=== PATIENT | female | born 1970 | race African-American/Black ===

== ENCOUNTER 2019-02-28 11:07 | Emergency (ER) | payer SELFPAY ==
[~2019-02-28] VITALS: Ht 157.5 cm; Wt 95.0 kg
[~2019-02-28 11:07] MED LIST: AMOXICILLIN/CL875 MG PO; AMOXICILLIN500 MG PO; AMOXICILLIN875 MG PO; AUGMENTIN500TAB PO; CIPROFLOXACN500 MG PO; CLARITIN10 M1 PO; DIOVAN HCT160 MG/25 PO; DOXYCYCL HYC100 MG PO; FERR SULFATE325 MG PO; FIORICET PO; FLEXERIL OR; HYZAAR1 TA2 PO; INDERAL 40MG TA40 MG PO; LISINOP/HCTZ1 TAB PO; NAPROSYN500 MG OR; PREDNISONE10 MG PO; PROPRANOLOL HCL40 MG PO; TRAZODONE50 MG PO; ULTRAM50 M1 PO; VALTREX1 GM PO; ZESTRIL/PRINIVI20 MG OR
[2019-02-28] MEDS ORDERED: LISINOPRIL20 MG PO ×2 (11:35→13:39)
[2019-02-28 11:58] LABS: HEMOGLOBIN 10.1 g/dl (12.0-16.0); MEAN CELL VOLUME 68.2 fL CALC (80.0-100.0); MEAN CORPUSCULAR HGB 19.7 pG CALC (26.0-32.0); MEAN CORPUSCULAR HGB CONC 28.9 g/L CALC (32.0-36.0); NEUT# 3.11 thou/uL (2.00-7.15); RED BLOOD COUNT 5.13 mill/uL (4.20-5.60); RED CELL DISTRI WIDTH 17.8 % (11.5-15.5)
[2019-02-28 12:16] LABS: ANION GAP 15 (6-22 (CALC)); BUN 8 mg/dL (7-17); BUN/CREATININE RATIO 12 (12-20 (CALC)); CARBON DIOXIDE 26 mmol/l (22-30); CHLORIDE 102 mmol/l (95-108); CREATININE 0.6 mg/dL (0.5-1.0); GFR > 60 ML/MIN (>=60 (CALC)); GFR FOR AFR.AMER. > 60 ML/MIN (>=60 (CALC)); POTASSIUM 3.9 mmol/l (3.5-5.1); SODIUM 139 mmol/l (137-146)
[2019-02-28 13:47] VITALS: BP 166/87
== END 2019-02-28 13:53 | disposition home or self-care (01) | DRG 305 ==
LOC: ED 11:07
PROVIDERS: Family Medicine
DX: I10 Essential (primary) hypertension (principal); R42 Dizziness and giddiness; R51 Headache; R11.0 Nausea; R94.31 Abnormal electrocardiogram [ECG] [EKG]

== ENCOUNTER 2019-05-18 14:58 | Emergency (ER) | payer SELFPAY ==
[~2019-05-18] VITALS: Ht 157.5 cm; Wt 98.3 kg
[~2019-05-18 14:58] MED LIST changes: +LISINOPRIL20 MG PO
[2019-05-18 16:28] VITALS: BP 137/87
== END 2019-05-18 16:32 | disposition home or self-care (01) | DRG 605 ==
LOC: ED 14:58
DX: S40.022A Contusion of left upper arm, initial encounter (principal); I10 Essential (primary) hypertension; Y04.0XXA Assault by unarmed brawl or fight, initial encounter

== ENCOUNTER 2020-06-24 22:32 | Emergency (ER) | payer SELFPAY ==
[~2020-06-24] VITALS: Ht 157.5 cm; Wt 100.0 kg
[2020-06-24] MEDS ORDERED: PREDNISONE1 MG PO (23:21)
[2020-06-24] MEDS ORDERED: HYDRALAZINE10 M2 PO (23:22)
[2020-06-25] LABS: HEMATOCRIT 33.7 % (37.0-47.0); HEMOGLOBIN 9.6 g/dl (12.0-16.0); IMMATURE GRANULOCYTES 0.6 % (0.0-5.0); MEAN CORPUSCULAR HGB 17.8 pG CALC (26.0-32.0); MEAN CORPUSCULAR HGB CONC 28.5 g/dL CAL (32.0-36.0); NEUT# 5.31 thou/uL (2.00-7.15); RED BLOOD COUNT 5.4 mill/uL (4.20-5.60); RED CELL DISTRI WIDTH 20.3 % (11.5-15.5)
[2020-06-25 00:01] LABS: MEAN CELL VOLUME 62.4 fL CALC (80.0-100.0)
[2020-06-25 00:37] LABS: ALBUMIN 4.8 g/dL (3.2-5.0); ALKALINE PHOSPHATASE 82 u/l (38-126); ANION GAP 13 (6-22 (CALC)); BILIRUBIN, TOTAL 0.6 mg/dL (0.0-1.4); BUN 14 mg/dL (7-17); BUN/CREATININE RATIO 19 (12-20 (CALC)); CARBON DIOXIDE 25 mmol/l (22-30); CHLORIDE 103 mmol/l (95-108); CREATININE 0.7 mg/dL (0.5-1.0); GFR > 60 ML/MIN (>=60 (CALC)); GFR FOR AFR.AMER. > 60 ML/MIN (>=60 (CALC)); POTASSIUM 3.6 mmol/l (3.5-5.1); SGOT/AST 32 u/l (14-36); SODIUM 137 mmol/l (137-146); TOTAL PROTEIN 8.6 g/dL (6.3-8.2)
[2020-06-25 02:54] VITALS: BP 148/81
== END 2020-06-25 03:20 | disposition left against medical advice (07) | DRG 885 ==
LOC: ED 22:32
PROVIDERS: Emergency Medicine
DX: F22 Delusional disorders (principal); D64.9 Anemia, unspecified; I10 Essential (primary) hypertension

== ENCOUNTER 2020-09-02 11:17 | Emergency (ER) | payer SELFPAY ==
[~2020-09-02] VITALS: Ht 157.5 cm; Wt 89.9 kg
[~2020-09-02 11:17] MED LIST changes: +HYDRALAZINE10 M2 PO; +PREDNISONE1 MG PO
[2020-09-02 12:48] LABS: URINE BILIRUBIN - DIPSTICK NEGATIVE (NEGATIVE); URINE BLOOD DIPSTICK SMALL (NEGATIVE); URINE COLOR YELLOW; URINE GLUCOSE - DIPSTICK >=1000 mg/dL (NEGATIVE); URINE KETONE 15 mg/dL (NEGATIVE); URINE LEUK ESTERASE NEGATIVE (NEGATIVE); URINE NITRITE - DIPSTICK NEGATIVE (Negative); URINE PROTEIN - DIPSTICK 30 mg/dL (NEG-TRACE); URINE UROBILINOGEN - DIPSTICK 0.2 E.U./dL (0.2)
[2020-09-02 12:53] LABS: URINE EPITHELIAL CELLS FEW EPI/hpf (0-FEW)
[2020-09-02 13:09] LABS: HEMATOCRIT 30.5 % (37.0-47.0); HEMOGLOBIN 8.5 g/dl (12.0-16.0); IMMATURE GRANULOCYTES 0.2 % (0.0-5.0); MEAN CELL VOLUME 65.5 fL CALC (80.0-100.0); MEAN CORPUSCULAR HGB 18.2 pG CALC (26.0-32.0); MEAN CORPUSCULAR HGB CONC 27.9 g/dL CAL (32.0-36.0); NEUT# 3.45 thou/uL (2.00-7.15); RED BLOOD COUNT 4.66 mill/uL (4.20-5.60); RED CELL DISTRI WIDTH 21.1 % (11.5-15.5)
[2020-09-02 13:30] LABS: ALKALINE PHOSPHATASE 60 u/l (38-126); ANION GAP 10 (6-22 (CALC)); BILIRUBIN, TOTAL 0.4 mg/dL (0.0-1.4); BUN 7 mg/dL (7-17); BUN/CREATININE RATIO 11 (12-20 (CALC)); CARBON DIOXIDE 29 mmol/l (22-30); CHLORIDE 100 mmol/l (95-108); CREATININE 0.6 mg/dL (0.5-1.0); ETHYL ALCOHOL 0 mg/dl (0-30); GFR > 60 ML/MIN (>=60 (CALC)); GFR FOR AFR.AMER. > 60 ML/MIN (>=60 (CALC)); POTASSIUM 3.9 mmol/l (3.5-5.1); SGOT/AST 40 u/l (14-36); SODIUM 134 mmol/l (137-146); TOTAL PROTEIN 7.7 g/dL (6.3-8.2)
[2020-09-02 17:13] VITALS: BP 178/88
== END 2020-09-02 17:13 | disposition designated cancer center or children's hospital (05) | DRG 125 ==
LOC: ED 11:17
PROVIDERS: Student in an Organized Health Care Education/Training Program
DX: R44.1 Visual hallucinations (principal); R23.8 Other skin changes; I10 Essential (primary) hypertension

== ENCOUNTER 2023-02-12 19:50 | Emergency (ER) | payer SELFPAY ==
[2023-02-12] VITALS (9 sets, daily range): BP systolic 133–184; BP diastolic 76–101
[~2023-02-12] VITALS: Ht 157.5 cm; Wt 97.0 kg
[2023-02-12 21:24] LABS: BASO% 0.3 % (0-3); EOS% 0.7 % (0-8); HEMATOCRIT 33.2 % (37.0-47.0); IMMATURE GRANULOCYTES 0.1 % (0.0-5.0); LYMPH% 12.2 % (15-41); MEAN CORPUSCULAR HGB 16.5 pG CALC (26.0-32.0); MEAN CORPUSCULAR HGB CONC 27.1 g/dL CAL (32.0-36.0); MONO% 6.5 % (2-13); NEUT# 5.83 thou/uL (2.00-7.15); NEUT% 80.2 % (42-76); RED BLOOD COUNT 5.45 mill/uL (4.20-5.60); RED CELL DISTRI WIDTH 21.3 % (11.5-15.5)
[2023-02-12 21:25] LABS: URINE BLOOD DIPSTICK LARGE (NEGATIVE); URINE COLOR YELLOW; URINE GLUCOSE - DIPSTICK NEGATIVE (NEGATIVE); URINE KETONE 15 mg/dL (NEGATIVE); URINE LEUK ESTERASE NEGATIVE (NEGATIVE); URINE PROTEIN - DIPSTICK TRACE mg/dL (NEG-TRACE); URINE SPECIFIC GRAVITY >=1.030; URINE UROBILINOGEN - DIPSTICK 0.2 E.U./dL (0.2)
[2023-02-12 21:29] LABS: MEAN CELL VOLUME 60.9 fL CALC (80.0-100.0)
[2023-02-12 21:33] LABS: URINE BILIRUBIN - DIPSTICK SMALL (NEGATIVE)
[2023-02-12 21:34] LABS: ALBUMIN 4.7 g/dL (3.2-5.0); ANION GAP 13 (6-22 (CALC)); BILIRUBIN, TOTAL 0.5 mg/dL (0.02-1.3); BUN 9 mg/dL (7-17); BUN/CREATININE RATIO 12 (12-20 (CALC)); CARBON DIOXIDE 24 mmol/l (22-30); CHLORIDE 103 mmol/l (95-108); CREATININE 0.7 mg/dL (0.5-1.0); GFR FOR AFR.AMER. > 60 ML/MIN (>=60 (CALC)); GFR OTHER RACES > 60 ML/MIN (>=60 (CALC)); MAGNESIUM 2.1 mg/dL (1.6-2.3); POTASSIUM 3.6 mmol/l (3.5-5.1); SGOT/AST 28 u/l (14-36); SODIUM 136 mmol/l (137-146); TOTAL PROTEIN 8.7 g/dL (6.3-8.2); URINE NITRITE - DIPSTICK NEGATIVE (Negative)
[2023-02-12 21:35] LABS: URINE SQUAMOUS EPITHELIAL CELL FEW EPI/hpf (0-FEW)
[2023-02-12 21:36] LABS: ALKALINE PHOSPHATASE 113 u/l (38-126)
[2023-02-12 22:05] LABS: TSH, 3RD GENERATION 0.42 uIU/mL (0.47 - 4.68)
[2023-02-12] MEDS ORDERED: MAXZIDE-25MG1 COMBO PO (22:27)
== END 2023-02-12 23:26 | disposition home or self-care (01) | DRG 948 ==
LOC: ED 19:50
PROVIDERS: Family Medicine
DX: R60.0 Localized edema (principal); I10 Essential (primary) hypertension; D64.9 Anemia, unspecified

== ENCOUNTER 2024-05-13 13:15 | Emergency (ER) | payer SELFPAY ==
[~2024-05-13] VITALS: Ht 157.5 cm; Wt 84.0 kg
[2024-05-13] VITALS (8 sets, daily range): BP systolic 137–171; BP diastolic 76–105
[~2024-05-13 13:15] MED LIST changes: +MAXZIDE-25MG1 COMBO PO
[2024-05-13] MEDS ORDERED: ZYRTEC10 MG PO (15:07)
[2024-05-13] MEDS ORDERED: ZPAK PO (15:07)
[2024-05-13] MEDS ORDERED: BENZONATATE200 MG PO (15:07)
== END 2024-05-13 15:20 | disposition home or self-care (01) | DRG 153 ==
LOC: ED 13:15
DX: J06.9 Acute upper respiratory infection, unspecified (principal); I10 Essential (primary) hypertension; Z20.822 Contact with and (suspected) exposure to COVID-19

== ENCOUNTER 2024-11-03 09:02 | Emergency (ER) | payer OTHER ==
[~2024-11-03] VITALS: Ht 157.5 cm; Wt 81.6 kg
[~2024-11-03 09:02] MED LIST changes: +BENZONATATE200 MG PO; +ZPAK PO; +ZYRTEC10 MG PO
[2024-11-03 11:01] LABS: URINE BILIRUBIN - DIPSTICK Negative (NEGATIVE); URINE BLOOD DIPSTICK Negative (NEGATIVE); URINE GLUCOSE - DIPSTICK Negative (NEGATIVE); URINE KETONE Negative (NEGATIVE); URINE LEUK ESTERASE Negative (NEGATIVE); URINE NITRITE - DIPSTICK Negative (Negative); URINE PROTEIN - DIPSTICK Negative (NEG-TRACE); URINE SPECIFIC GRAVITY 1.025; URINE UROBILINOGEN - DIPSTICK 0.2 E.U./dL (0.2)
[2024-11-03 11:08] LABS: URINE COLOR Yellow
[2024-11-03 11:13] VITALS: BP 135/74
[2024-11-03 12:14] LABS: BASO% 0.9 % (0-3); EOS% 2.9 % (0-8); HEMATOCRIT 28.1 % (37.0-47.0); HEMOGLOBIN 7.3 g/dl (12.0-16.0); IMMATURE GRANULOCYTES 0.2 % (0.0-5.0); LYMPH% 27.9 % (15-41); MEAN CELL VOLUME 62.7 fL CALC (80.0-100.0); MEAN CORPUSCULAR HGB 16.3 pG CALC (26.0-32.0); MONO% 8.5 % (2-13); NEUT# 3.51 thou/uL (2.00-7.15); NEUT% 59.6 % (42-76); RED BLOOD COUNT 4.48 mill/uL (4.20-5.60); RED CELL DISTRI WIDTH 22.8 % (11.5-15.5)
[2024-11-03 12:30] LABS: ALBUMIN 4.6 g/dL (3.2-5.0); BILIRUBIN, TOTAL 0.4 mg/dL (0.02-1.3); CREATININE 0.7 mg/dL (0.5-1.0); POTASSIUM 4.2 mmol/l (3.5-5.1); TOTAL PROTEIN 8.2 g/dL (6.3-8.2)
[2024-11-03] MEDS ORDERED: METRONIDAZOLE500 MG PO (12:43)
== END 2024-11-03 12:56 | disposition home or self-care (01) | DRG 761 ==
LOC: ED 09:02
PROVIDERS: Family Medicine
DX: T19.2XXA Foreign body in vulva and vagina, initial encounter (principal); N76.0 Acute vaginitis; I10 Essential (primary) hypertension; W44.8XXA Other foreign body entering into or through a natural orifice, initial encounter

== ENCOUNTER 2025-01-06 22:39 | Emergency (ER) | payer OTHER ==
[~2025-01-06] VITALS: Ht 157.5 cm; Wt 85.0 kg
[~2025-01-06 22:39] MED LIST changes: +METRONIDAZOLE500 MG PO
[2025-01-06 23:52] LABS: URINE BILIRUBIN - DIPSTICK Negative (NEGATIVE); URINE BLOOD DIPSTICK Moderate (NEGATIVE); URINE GLUCOSE - DIPSTICK Negative (NEGATIVE); URINE KETONE Negative (NEGATIVE); URINE PROTEIN - DIPSTICK 100 mg/dL (NEG-TRACE); URINE UROBILINOGEN - DIPSTICK 0.2 E.U./dL (0.2)
[2025-01-06 23:53] LABS: URINE COLOR Yellow; URINE LEUK ESTERASE Small (NEGATIVE)
[2025-01-06 23:54] LABS: URINE NITRITE - DIPSTICK Negative (Negative)
[2025-01-06 23:58] LABS: URINE WBC 20-50 WBC/hpf (0-5)
[2025-01-06 23:59] LABS: URINE BACTERIA MODERATE hpf; URINE EPITHELIAL CELLS FEW EPI/hpf (0-FEW)
[2025-01-07] MEDS ORDERED: BACTRIM DS1 TAB PO (00:07)
[2025-01-07] MEDS ORDERED: SULFAMETHOXAZOLE W/TRIMETHOPRI 1 COMBO TAB PO ONE (00:10)
[2025-01-07 00:29] VITALS: BP 189/96
== END 2025-01-07 00:30 | disposition home or self-care (01) | DRG 690 ==
LOC: ED 22:39
PROVIDERS: Family Medicine
DX: N39.0 Urinary tract infection, site not specified (principal); I10 Essential (primary) hypertension